=== PATIENT | male | born 1990 | race Caucasian/White ===

== ENCOUNTER 2017-11-19 13:36 | Emergency (ER) | payer OTHER ==
[~2017-11-19] VITALS: Ht 177.8 cm; Wt 75.0 kg
[~2017-11-19 13:36] MED LIST: Z.0.NO CURRENT MEDS
[2017-11-19 13:42] VITALS: BP 132/58; PULSE 78; RESP 18; TEMP 98.4; O2SAT 100
--- NOTE | 2017-11-19 15:41 | RADRPT ---
EXAM DATE/TIME: 11/19/2017 13:57 [place] COMPARISON: No previous studies available for comparison. INDICATIONS : Chest pain. MEDICAL HISTORY : None. SURGICAL HISTORY : None. ENCOUNTER: Initial ACUITY: 1 day PAIN SCORE: 10/10 LOCATION: Left bottom chest FINDINGS: The cardiac silhouette is normal in transverse diameter. There is no evidence of pneumonia. No pleur al effusions are identified. CONCLUSION: No acute cardiopulmonary disease. Bertin Serrato MD on November 19, 2017 at 15:38 Board Certified Radiologist. This report was verified electronically.
[2017-11-19] MEDS ORDERED: SODIUM CHLOR 0.9% 1000 ML INJ 1,000 ML IV SCH (15:51)
[2017-11-19] MEDS ORDERED: MORPHINE SULFATE 4 MG/ML INJ IV PUSH ONE (16:00)
--- NOTE | 2017-11-19 16:05 | PD ---
HPI Chief Complaint: Chest Pain Time Seen by Provider: 15:46 Travel History International Travel<30 days: No Contact w/Intl Traveler<30days: No Traveled to known affect area: No History of Present Illness HPI 27-year-old male arrives with chest pain. He reports it started last night after he insufflated cocaine. He reports the pain to be severe. Associated symptoms include shortness of breath. There is an exertional component. Pain has radiated into the neck. The patient reports smoking tobacco. He drinks alcohol on occasion. He denies past medical history. Pain has been constant since about 4 AM, 12 hours prior to ER evaluation. [facility] Social History Alcohol Use: No Tobacco Use: Yes (ppd) Substance Use: Yes (cocaine) Allergies-Medications (Allergen,Severity, Reaction): Coded Allergies: No Known Allergies (Verified , 06/07/08) Reported Meds & Prescriptions Reported Meds & Active Scripts Active Reported No Current Meds (Miscellaneous Medication) Misc Review of Systems Except as stated in HPI: all other systems reviewed are Neg Physical Exam Narrative GENERAL: 27 yo M, WNWD, mild distress 2/2 pain and/or anxiety Vital Signs Date Time Temp Pulse Resp B/P (MAP) Pulse Ox O2 Delivery O2 Flow Rate FiO2 11/19/17 13:42 98.4 78 18 132/58 (82) 100 SKIN: Warm and dry. HEAD: Atraumatic. Normocephalic. EYES: Pupils equal and round. No scleral icterus. No injection or drainage. ENT: No nasal bleeding or discharge. Mucous membranes pink and moist. NECK: Trachea midline. No JVD. CARDIOVASCULAR: Regular rate and rhythm. RESPIRATORY: No accessory muscle use. Clear to auscultation. Breath sounds equal bilaterally. GASTROINTESTINAL: Abdomen soft, non-tender, nondistended. Hepatic and splenic margins not palpable. MUSCULOSKELETAL: Extremities without clubbing, cyanosis, or edema. No obvious deformities. NEUROLOGICAL: Awake and alert. No obvious cranial nerve deficits. Motor grossly within normal limits. Five out of 5 muscle strength in the arms and legs. Normal speech. PSYCHIATRIC: Appropriate mood and affect; insight and judgment normal. Data Data Last Documented VS Vital Signs Date Time Temp Pulse Resp B/P (MAP) Pulse Ox O2 Delivery O2 Flow Rate FiO2 11/19/17 19:07 11/19/17 17:09 77 20 100 Room Air 11/19/17 13:42 98.4 Orders Orders Electrocardiogram (11/19/17 13:43) Basic Metabolic Panel (Bmp) (11/19/17 13:43) Ckmb (Isoenzyme) Profile (11/19/17 13:43) Complete Blood Count With Diff (11/19/17 13:43) Magnesium (Mg) (11/19/17 13:43) Prothrombin Time / Inr (Pt) (11/19/17 13:43) Act Partial Throm Time (Ptt) (11/19/17 13:43) Troponin I (11/19/17 13:43) Chest, Pa & Lat (11/19/17 13:43) Iv Access Insert/Monitor (11/19/17 15:51) Ecg Monitoring (11/19/17 15:51) Morphine Inj (Morphine Inj) (11/19/17 16:00) Sodium Chlor 0.9% 1000 Ml Inj (Ns 1000 M (11/19/17 15:51) Drug Screen, Random Urine (11/19/17 16:37) Sodium Chlor 0.9% 1000 Ml Inj (Ns 1000 M (11/19/17 16:45) CKMB (11/19/17 14:43) CKMB% (11/19/17 14:43) Troponin I (11/19/17 17:43) Potassium Chloride (Kcl) (11/19/17 18:30) Ed Discharge Order (11/19/17 18:54) Labs Laboratory Tests Test 11/19/17 14:43 11/19/17 17:43 11/19/17 18:23 White Blood Count 9.5 TH/MM3 Red Blood Count 4.89 MIL/MM3 Hemoglobin 14.8 GM/DL Hematocrit 43.1 % Mean Corpuscular Volume 88.2 FL Mean Corpuscular Hemoglobin 30.3 PG Mean Corpuscular Hemoglobin Concent 34.3 % Red Cell Distribution Width 13.1 % Platelet Count 237 TH/MM3 Mean Platelet Volume 10.1 FL Neutrophils (%) (Auto) 80.1 % Lymphocytes (%) (Auto) 12.5 % Monocytes (%) (Auto) 5.5 % Eosinophils (%) (Auto) 1.5 % Basophils (%) (Auto) 0.4 % Neutrophils # (Auto) 7.6 TH/MM3 Lymphocytes # (Auto) 1.2 TH/MM3 Monocytes # (Auto) 0.5 TH/MM3 Eosinophils # (Auto) 0.1 TH/MM3 Basophils # (Auto) 0.0 TH/MM3 CBC Comment DIFF FINAL Differential Comment Prothrombin Time 11.0 SEC Prothromb Time International Ratio 1.1 RATIO Activated Partial Thromboplast Time 28.0 SEC Blood Urea Nitrogen 7 MG/DL Creatinine 0.97 MG/DL Random Glucose 113 MG/DL Calcium Level 8.9 MG/DL Magnesium Level 2.2 MG/DL Sodium Level 139 MEQ/L Potassium Level 3.3 MEQ/L Chloride Level 105 MEQ/L Carbon Dioxide Level 25.3 MEQ/L Anion Gap 9 MEQ/L Estimat Glomerular Filtration Rate 93 ML/MIN Total Creatine Kinase 142 U/L Creatine Kinase MB 1.9 NG/ML Troponin I LESS THAN 0.02 NG/ML LESS THAN 0.02 NG/ML Urine Opiates Screen NEG Urine Barbiturates Screen NEG Urine Amphetamines Screen NEG Urine Benzodiazepines Screen NEG Urine Cocaine Screen POS Urine Cannabinoids Screen NEG MDM Medical Decision Making Medical Screen Exam Complete: Yes Emergency Medical Condition: Yes Medical Record Reviewed: Yes Differential Diagnosis NSTEMI, unstable angina, coronary vasospasm, PE, PTX, aortic dissection, pericarditis, myocarditis, endocarditis, PNA, esophageal disease, aneurysm, musculoskeletal etiologies, anxiety, cocaine/sympathomimetic abuse Narrative Course EKG shows a right bundle branch block pattern/right-sided conduction delay without ischemic injury, rate approximately 78 Last Impressions Chest X-Ray 11/19/17 1343 Signed Impressions: Service Date/Time: Sunday, November 19, 2017 13:57 - CONCLUSION: No acute cardiopulmonary disease. Bertin Serrato MD d/w Dr Benson at 5:00pm Denver Washington MD Nov 19, 2017 16:04
[2017-11-19 16:26] LABS: AUTOMATED NEUTROPHIL # 7.6 TH/MM3 (1.8-7.7); BASOPHIL % 0.4 % (0.0-2.0); EOSINOPHIL # 0.1 TH/MM3 (0-0.4); EOSINOPHIL % 1.5 % (0.0-4.0); HEMATOCRIT 43.1 % (39.0-51.0); HEMOGLOBIN 14.8 GM/DL (13.0-17.0); LYMPH % 12.5 % (9.0-44.0); LYMPHOCYTE # 1.2 TH/MM3 (1.0-4.8); MEAN CELL VOLUME 88.2 FL (80.0-100.0); MEAN CORPUSCULAR HEMOGLOBIN 30.3 PG (27.0-34.0); MEAN CORPUSCULAR HGB CONC 34.3 % (32.0-36.0); MEAN PLATELET VOLUME 10.1 FL (7.0-11.0); MONO % 5.5 % (0.0-8.0); MONOCYTE # 0.5 TH/MM3 (0-0.9); NEUT % 80.1 % (16.0-70.0); PLATELET COUNT 237 TH/MM3 (150-450); RED BLOOD COUNT 4.89 MIL/MM3 (4.50-5.90); RED CELL DISTRIBUTION WIDTH 13.1 % (11.6-17.2); WHITE BLOOD COUNT 9.5 TH/MM3 (4.0-11.0)
[2017-11-19 16:39] LABS: INTERNATIONAL NORMALIZED RATIO 1.1 RATIO
[2017-11-19] MEDS ORDERED: SODIUM CHLOR 0.9% 1000 ML INJ 1,000 ML IV ONE (16:45)
[2017-11-19 16:47] LABS: BICARBONATE 25.3 MEQ/L (21.0-32.0); BLOOD UREA NITROGEN 7 MG/DL (7-18); CALCIUM 8.9 MG/DL (8.5-10.1); CHLORIDE 105 MEQ/L (98-107); CREATININE 0.97 MG/DL (0.60-1.30); GLOMERULAR FILTRATION RATE 93 ML/MIN (>89); GLUCOSE,RANDOM 113 MG/DL (74-106); MAGNESIUM 2.2 MG/DL (1.5-2.5); SODIUM (NA) 139 MEQ/L (136-145)
[2017-11-19 16:52] LABS: TROPONIN I LESS THAN 0.02 NG/ML (0.02-0.05)
--- NOTE | 2017-11-19 17:01 | PD ---
Physical Exam Date Seen by Provider: Nov 19, 2017 Time Seen by Provider: 16:59 Narrative A 27-year-old male was initially evaluated by the previous physician. Please refer to the initial history, physical, diagnostic evaluation, and treatment modality plan. The patient was identified p.m. with laboratory evaluation pending. Data Data Last Documented VS Vital Signs Date Time Temp Pulse Resp B/P (MAP) Pulse Ox O2 Delivery O2 Flow Rate FiO2 11/19/17 17:09 77 20 122/59 (80) 100 Room Air 11/19/17 13:42 98.4 Orders Orders Electrocardiogram (11/19/17 13:43) Basic Metabolic Panel (Bmp) (11/19/17 13:43) Ckmb (Isoenzyme) Profile (11/19/17 13:43) Complete Blood Count With Diff (11/19/17 13:43) Magnesium (Mg) (11/19/17 13:43) Prothrombin Time / Inr (Pt) (11/19/17 13:43) Act Partial Throm Time (Ptt) (11/19/17 13:43) Troponin I (11/19/17 13:43) Chest, Pa & Lat (11/19/17 13:43) Iv Access Insert/Monitor (11/19/17 15:51) Ecg Monitoring (11/19/17 15:51) Morphine Inj (Morphine Inj) (11/19/17 16:00) Sodium Chlor 0.9% 1000 Ml Inj (Ns 1000 M (11/19/17 15:51) Drug Screen, Random Urine (11/19/17 16:37) Sodium Chlor 0.9% 1000 Ml Inj (Ns 1000 M (11/19/17 16:45) CKMB (11/19/17 14:43) CKMB% (11/19/17 14:43) Troponin I (11/19/17 17:43) Potassium Chloride (Kcl) (11/19/17 18:30) Ed Discharge Order (11/19/17 18:54) Labs Laboratory Tests Test 11/19/17 14:43 11/19/17 17:43 11/19/17 18:23 White Blood Count 9.5 TH/MM3 Red Blood Count 4.89 MIL/MM3 Hemoglobin 14.8 GM/DL Hematocrit 43.1 % Mean Corpuscular Volume 88.2 FL Mean Corpuscular Hemoglobin 30.3 PG Mean Corpuscular Hemoglobin Concent 34.3 % Red Cell Distribution Width 13.1 % Platelet Count 237 TH/MM3 Mean Platelet Volume 10.1 FL Neutrophils (%) (Auto) 80.1 % Lymphocytes (%) (Auto) 12.5 % Monocytes (%) (Auto) 5.5 % Eosinophils (%) (Auto) 1.5 % Basophils (%) (Auto) 0.4 % Neutrophils # (Auto) 7.6 TH/MM3 Lymphocytes # (Auto) 1.2 TH/MM3 Monocytes # (Auto) 0.5 TH/MM3 Eosinophils # (Auto) 0.1 TH/MM3 Basophils # (Auto) 0.0 TH/MM3 CBC Comment DIFF FINAL Differential Comment Prothrombin Time 11.0 SEC Prothromb Time International Ratio 1.1 RATIO Activated Partial Thromboplast Time 28.0 SEC Blood Urea Nitrogen 7 MG/DL Creatinine 0.97 MG/DL Random Glucose 113 MG/DL Calcium Level 8.9 MG/DL Magnesium Level 2.2 MG/DL Sodium Level 139 MEQ/L Potassium Level 3.3 MEQ/L Chloride Level 105 MEQ/L Carbon Dioxide Level 25.3 MEQ/L Anion Gap 9 MEQ/L Estimat Glomerular Filtration Rate 93 ML/MIN Total Creatine Kinase 142 U/L Creatine Kinase MB 1.9 NG/ML Troponin I LESS THAN 0.02 NG/ML LESS THAN 0.02 NG/ML [facility] [place] Medical Record Reviewed: Yes Supervised Visit with MICHELLE: No Interpretation(s) EKG reveals sinus bradycardia with a heart rate of 58. RSR prime in V1. Last Impressions Chest X-Ray 11/19/17 1343 Signed Impressions: Service Date/Time: Sunday, November 19, 2017 13:57 - CONCLUSION: No acute cardiopulmonary disease. Bertin Serrato MD Laboratory Tests Test 11/19/17 14:43 11/19/17 17:43 White Blood Count 9.5 TH/MM3 Red Blood Count 4.89 MIL/MM3 Hemoglobin 14.8 GM/DL Hematocrit 43.1 % Mean Corpuscular Volume 88.2 FL Mean Corpuscular Hemoglobin 30.3 PG Mean Corpuscular Hemoglobin Concent 34.3 % Red Cell Distribution Width 13.1 % Platelet Count 237 TH/MM3 Mean Platelet Volume 10.1 FL Neutrophils (%) (Auto) 80.1 % Lymphocytes (%) (Auto) 12.5 % Monocytes (%) (Auto) 5.5 % Eosinophils (%) (Auto) 1.5 % Basophils (%) (Auto) 0.4 % Neutrophils # (Auto) 7.6 TH/MM3 Lymphocytes # (Auto) 1.2 TH/MM3 Monocytes # (Auto) 0.5 TH/MM3 Eosinophils # (Auto) 0.1 TH/MM3 Basophils # (Auto) 0.0 TH/MM3 CBC Comment DIFF FINAL Differential Comment Prothrombin Time 11.0 SEC Prothromb Time International Ratio 1.1 RATIO Activated Partial Thromboplast Time 28.0 SEC Blood Urea Nitrogen 7 MG/DL Creatinine 0.97 MG/DL Random Glucose 113 MG/DL Calcium Level 8.9 MG/DL Magnesium Level 2.2 MG/DL Sodium Level 139 MEQ/L Potassium Level 3.3 MEQ/L Chloride Level 105 MEQ/L Carbon Dioxide Level 25.3 MEQ/L Anion Gap 9 MEQ/L Estimat Glomerular Filtration Rate 93 ML/MIN Total Creatine Kinase 142 U/L Creatine Kinase MB 1.9 NG/ML Troponin I LESS THAN 0.02 NG/ML LESS THAN 0.02 NG/ML Differential Diagnosis Differential diagnosis includes ACS, Prinzmetal angina, dissection, pneumothorax , pneumomediastinum, cocaine side effect, costochondritis, GERD, esophageal spasm. Narrative Course The patient is a 27-year-old male was initially evaluated by the previous physician. Please refer to the initial history, physical, diagnostic evaluation , and treatment modality plan. The patient was signed out at 5 PM with initial troponin pending. The patient apparently used cocaine last night and developed chest pain earlier today. The patient has no known risk factors, chest x-ray is unremarkable, EKG revealed sinus bradycardia with RSR prime in V1. Therefore , second troponin was ordered for 5:43 PM. The patient's second troponin is negative. The patient is advised to stop using cocaine. The patient requested that his mother not know he was using cocaine prior to the onset of chest pain. Therefore, the mother was asked to leave the room when I was giving him Versed his results and follow-up instructions. The mother was angry that she was asked to leave the room, I tried to relate to the mother that it was at the patient's request but cannot tell her why we are going to speak alone. I did advise the patient to stop using cocaine, Tylenol and/or Motrin as needed for pain, and follow-up with his primary physician. Diagnosis Primary Impression: Chest pain Qualified Codes: R07.9 - Chest pain, unspecified Additional Impression: Cocaine use Patient Instructions: General Instructions Additional Instruction: Stop using cocaine. Follow-up with your primary physician. Return if symptoms worsen or progress. Work excuse for tonight. Med/Other Pt SpecificInfo: No Change to Meds Disposition: 01 DISCHARGE HOME Condition: Stable Marvin Benson MD Nov 19, 2017 17:01
[2017-11-19 17:09] VITALS: BP 122/59; PULSE 77; RESP 20; O2SAT 100
[2017-11-19] MEDS ORDERED: POTASSIUM CHLORIDE 20 MEQ CONTROLLED RELEASE TAB PO ONE (18:30)
--- NOTE | 2017-11-20 13:14 | EKG ---
Date Performed: 11/19/2017 Time Performed: 14:30:25 PTAGE: 27 years EKG: SINUS BRADYCARDIA POSSIBLE RIGHT VENTRICULAR CONDUCTION DELAY BORDERLINE ECG INTERPRETATION BASED ON A DEFAULT AGE OF 40 YEARS NO PREVIOUS TRACING DOCTOR: Bradford Peguero Interpretating Date/Time 11/20/2017 13:13:45
== END 2017-11-19 19:15 | disposition home or self-care (01) ==
LOC: NEPD 13:36
DX: R07.9 Chest pain, unspecified (principal); F14.90 Cocaine use, unspecified, uncomplicated; R94.31 Abnormal electrocardiogram [ECG] [EKG]; F17.210 Nicotine dependence, cigarettes, uncomplicated
CPT/HCPCS: 71046; 80048; 80307; 82550; 82552; 83735; 84484; 85025; 85610; 85730; 93005; 96361; 96374; 99285; J2270; J7030